=== PATIENT | male | born 1990 | race Caucasian/White ===

== ENCOUNTER 2025-07-03 08:08 | Observation (INO) ==
--- NOTE | 2025-07-03 08:52 | Emergency Department Note ---
Impression & Plan Alcohol withdrawal, Tremor, Anxiety, Panic attacks ED Provider Note CHIEF COMPLAINT: Hypertension, panic attacks HISTORY OF PRESENTING ILLNESS: Patient is a 35-year-old male who presents to the emergency department today for complaints of hypertension and panic attacks. He reports being at work and becoming jittery, he Suprane and fell like he was going to pass out. He reports this is typically how his panic attacks present. He reports feeling in "impending doom" at the time of the panic attack. His symptoms have currently resolved. He does report drinking 5 rum and Cokes a night for the past 11 years but stopped drinking on Monday at 5 PM and has not had a drink since. He does report chest discomfort but believes it is related to his panic attack. He denies any headaches, visual changes, dizziness, lightheadedness, syncope.. Patient denies sob, breathing difficulties, abdominal pain, headache, fevers/chills, blood in stool or urine, any recent illness, or any recent travel. REVIEW OF SYSTEMS: See HPI for pertinent positives and pertinent negatives. ALLERGIES: See below MEDICATIONS: See below PAST MEDICAL HISTORY: See below PHYSICAL EXAM: VITALS: Vitals are noted on the nurse's note and reviewed by myself. GENERAL: Tremor to bilateral hands noted. Non toxic, in no acute distress, non- diaphoretic. SKIN: Warm, pink, dry. Capillary refill <2 sec. EYES: PERRLA. EOMI. Conjunctivae without injection, sclerae without icterus. NOSE: Patent without discharge. MOUTH: Mucous membranes moist. Uvula midline. Airway patent. NECK: Supple without nuchal rigidity. HEART: Regular rate and rhythm without murmurs gallops or rubs. LUNGS: Clear to auscultation bilaterally without wheezes, rales or rhonchi. No retractions or accessory muscle use. ABDOMEN: Positive bowel sounds x 4. Normal tympanic percussion. Soft, nontender to palpation. No masses or hepatosplenomegaly. Gutiérrez sign negative. No CVA tenderness. No guarding, rigidity, or rebound tenderness. No focal RLQ or LLQ tenderness. MUSCULOSKELETAL: No gross musculoskeletal defects. NEURO: Patient was alert and oriented. No focal neurological deficits. NIH 0. DIFFERENTIAL DIAGNOSIS: Sepsis, stroke, intracranial hemorrhage, medication abuse, anxiety, PTSD, bipolar disorder, electrolyte imbalances, among others. ED COURSE AND MEDICAL DECISION MAKING: HISTORY FROM INDEPENDENT HISTORIAN: History was provided by the patient. MONITOR: Continuous desk monitor: Order was placed for continuous desk monitor. Patient was placed on the desk monitor and continuous pulse ox. Patient was noted to be in normal sinus rhythm at an initial rate of 82 bpm per my interpretation. EKG: EKG was interpreted by myself as normal sinus rhythm at a ventricular rate of 84 bpm. INTERPRETATION OF LABS: I interpreted the labs with full lab results as below in the lab section of this note. Laboratory results pertinent to the emergent complaint are discussed in the MDM section below. The patient was advised to follow up with their PCP and/or specialist(s) for further outpatient monitoring and management of any abnormal results. INTERPRETATION OF IMAGING: Imaging studies were interpreted by myself and read by radiology as per the imaging section of this note. The patient was advised to follow up with their PCP and/or specialist(s) for further outpatient management of any non-emergent abnormal findings. CHRONIC MEDICAL/SOCIAL CONDITIONS AFFECTING CARE: No social concerns were identified as barriers to patients care. EXTERNAL RECORDS REVIEWED: Patient's emergency room visit from 05/10/2020 related to withdrawal complaints. ESCALATION OF CARE CONSIDERED: I considered admission on this patient due to alcohol withdrawal symptoms. I did discuss the patient's plan of quitting the use of alcohol and he is preferring to stop drinking and inpatient management for withdrawal symptoms. CONSULTATIONS: I had a meaningful discussion about this patient with Dr. Goodson who agrees with my assessment and the treatment plan. SUMMARY: I examined the patient for complaints of hypertension, panic attacks. A physical exam and history were performed. Nursing notes, EMR, and medication list were personally reviewed. CBC shows no leukocytosis, anemia, thrombocytopenia. CMP showed no emergent findings. Lipase was 7. Troponin was less than 2.3. Urinalysis was negative for leukocytes, nitrates. Urinalysis showed no leukocytes, nitrates. UDS was negative. Medical alcohol was less than 10. Chest x-ray showed no acute findings. Patient was given Ativan 1 mg for an alcohol withdrawal score of 5 with significant improvement in his symptoms of anxiety, tremors. He was given thiamine and folic acid p.o. I did discuss the patient's plan of discontinuing alcohol use versus continuing and he is looking at stopping. We discussed the risks and at this time he is in agreements for admission to the hospital for alcohol withdrawal. I did talk to Dr. Rodriguez for admission and the patient was accepted. DIAGNOSIS: Alcohol withdrawal, anxiety, panic attacks TREATMENT PLAN/DISCHARGE INSTRUCTIONS: Admit to hospitalist services. The chart was completed utilizing [employer] Speech voice recognition software.Grammatical errors, random word insertions, pronoun errors, and incomplete sentences are an occasional consequence of this system due to software limitations, ambient noise, and hardware issues.Any formal questions or concerns about the content, text, or information contained within the body of this dictation should be directly addressed to the physician for clarification. Past Med/Surg History Problem List (Updated 07/03/25 @ 11:12 by Javier Rodriguez MD) Alcohol withdrawal syndrome without complication GUANAKO (generalized anxiety disorder) Panic attacks (Acute) Anxiety (Acute) Tremor (Acute) Alcohol withdrawal (Acute) Social History Smoking Status: Former smoker Tobacco Type: Cigarettes Feels Safe at Home: Yes Allergies Allergies Allergy/AdvReac Type Severity Reaction Status Date / Time No Known Allergies Allergy Unverified 05/10/20 19:09 Home Meds Home Medications Medication Instructions Recorded Confirmed omeprazole 20 mg capsule,delayed 0 mg PO DAILY 07/03/25 07/03/25 release Results & Data (ED) Vital Signs Vital Signs - 24 hr 07/03/25 08:09 07/03/25 08:17 07/03/25 08:54 Temperature 36.6 C Temperature Source Oral Oral Pulse Rate 82 77 Pulse Rate [Apical] 82 Pulse Rate from SpO2 Sensor Pulse Rhythm Pulse Rhythm [Apical] Regular Pulse Strength [Apical] Normal Respiratory Rate 22 20 Respiratory Effort / Characteristics Non-Labored Spontaneous Non-Labored Spontaneous Respiratory Depth Normal Normal Respiratory Pattern Regular Blood Pressure 155/96 H Blood Pressure [Right Arm] 143/103 H Blood Pressure Mean 115 Blood Pressure Mean [Right Arm] 116 Pulse Oximetry 98 99 Oxygen Delivery Method Room Air Room Air Sepsis Recent Fever Within 48 Hours No Sepsis New/Unexplained Change in Mental Status N/A Sepsis Action Taken by Nursing No Action Required 07/03/25 08:56 07/03/25 09:00 07/03/25 09:09 Temperature Temperature Source Pulse Rate 86 79 78 Pulse Rate [Apical] Pulse Rate from SpO2 Sensor 78 78 Pulse Rhythm Pulse Rhythm [Apical] Pulse Strength [Apical] Respiratory Rate 21 16 22 Respiratory Effort / Characteristics Respiratory Depth Respiratory Pattern Blood Pressure 139/109 H Blood Pressure [Right Arm] Blood Pressure Mean 114 Blood Pressure Mean [Right Arm] Pulse Oximetry 98 96 97 Oxygen Delivery Method Room Air Room Air Sepsis Recent Fever Within 48 Hours Sepsis New/Unexplained Change in Mental Status Sepsis Action Taken by Nursing 07/03/25 09:10 07/03/25 09:10 07/03/25 09:10 Temperature Temperature Source Pulse Rate Pulse Rate [Apical] Pulse Rate from SpO2 Sensor Pulse Rhythm Pulse Rhythm [Apical] Pulse Strength [Apical] Respiratory Rate Respiratory Effort / Characteristics Respiratory Depth Respiratory Pattern Blood Pressure 150/94 H 150/94 H 150/94 H Blood Pressure [Right Arm] Blood Pressure Mean 101 101 101 Blood Pressure Mean [Right Arm] Pulse Oximetry Oxygen Delivery Method Sepsis Recent Fever Within 48 Hours Sepsis New/Unexplained Change in Mental Status Sepsis Action Taken by Nursing 07/03/25 09:10 07/03/25 09:10 07/03/25 09:11 Temperature Temperature Source Pulse Rate 74 Pulse Rate [Apical] Pulse Rate from SpO2 Sensor Pulse Rhythm Regular Pulse Rhythm [Apical] Pulse Strength [Apical] Respiratory Rate 22 Respiratory Effort / Characteristics Respiratory Depth Respiratory Pattern Blood Pressure 150/94 H 150/94 H Blood Pressure [Right Arm] Blood Pressure Mean 101 101 Blood Pressure Mean [Right Arm] Pulse Oximetry 97 Oxygen Delivery Method Room Air Sepsis Recent Fever Within 48 Hours Sepsis New/Unexplained Change in Mental Status Sepsis Action Taken by Nursing 07/03/25 09:11 07/03/25 09:12 07/03/25 09:21 Temperature Temperature Source Pulse Rate 73 72 Pulse Rate [Apical] 74 Pulse Rate from SpO2 Sensor 74 75 Pulse Rhythm Pulse Rhythm [Apical] Pulse Strength [Apical] Respiratory Rate 20 18 17 Respiratory Effort / Characteristics Non-Labored Respiratory Depth Normal Respiratory Pattern Blood Pressure Blood Pressure [Right Arm] 150/94 H Blood Pressure Mean Blood Pressure Mean [Right Arm] 112 Pulse Oximetry 96 97 98 Oxygen Delivery Method Room Air Sepsis Recent Fever Within 48 Hours Sepsis New/Unexplained Change in Mental Status Sepsis Action Taken by Nursing 07/03/25 09:30 07/03/25 09:30 07/03/25 09:30 Temperature Temperature Source Pulse Rate Pulse Rate [Apical] Pulse Rate from SpO2 Sensor Pulse Rhythm Pulse Rhythm [Apical] Pulse Strength [Apical] Respiratory Rate Respiratory Effort / Characteristics Respiratory Depth Respiratory Pattern Blood Pressure 144/99 H 144/99 H 144/99 H Blood Pressure [Right Arm] Blood Pressure Mean 108 108 108 Blood Pressure Mean [Right Arm] Pulse Oximetry Oxygen Delivery Method Sepsis Recent Fever Within 48 Hours Sepsis New/Unexplained Change in Mental Status Sepsis Action Taken by Nursing 07/03/25 09:30 07/03/25 09:30 07/03/25 09:30 Temperature Temperature Source Pulse Rate 75 Pulse Rate [Apical] Pulse Rate from SpO2 Sensor 74 Pulse Rhythm Pulse Rhythm [Apical] Pulse Strength [Apical] Respiratory Rate 24 Respiratory Effort / Characteristics Respiratory Depth Respiratory Pattern Blood Pressure 144/99 H 144/99 H Blood Pressure [Right Arm] Blood Pressure Mean 108 108 Blood Pressure Mean [Right Arm] Pulse Oximetry 99 Oxygen Delivery Method Sepsis Recent Fever Within 48 Hours Sepsis New/Unexplained Change in Mental Status Sepsis Action Taken by Nursing 07/03/25 09:42 07/03/25 09:51 07/03/25 10:00 Temperature Temperature Source Pulse Rate 82 68 Pulse Rate [Apical] Pulse Rate from SpO2 Sensor 79 69 Pulse Rhythm Pulse Rhythm [Apical] Pulse Strength [Apical] Respiratory Rate 17 16 Respiratory Effort / Characteristics Respiratory Depth Respiratory Pattern Blood Pressure 154/115 H Blood Pressure [Right Arm] Blood Pressure Mean 121 Blood Pressure Mean [Right Arm] Pulse Oximetry 99 99 Oxygen Delivery Method Sepsis Recent Fever Within 48 Hours Sepsis New/Unexplained Change in Mental Status Sepsis Action Taken by Nursing 07/03/25 10:00 07/03/25 10:00 07/03/25 10:00 Temperature Temperature Source Pulse Rate Pulse Rate [Apical] Pulse Rate from SpO2 Sensor Pulse Rhythm Pulse Rhythm [Apical] Pulse Strength [Apical] Respiratory Rate Respiratory Effort / Characteristics Respiratory Depth Respiratory Pattern Blood Pressure 154/115 H 154/115 H 154/115 H Blood Pressure [Right Arm] Blood Pressure Mean 121 121 121 Blood Pressure Mean [Right Arm] Pulse Oximetry Oxygen Delivery Method Sepsis Recent Fever Within 48 Hours Sepsis New/Unexplained Change in Mental Status Sepsis Action Taken by Nursing 07/03/25 10:00 07/03/25 10:00 07/03/25 10:12 Temperature Temperature Source Pulse Rate 65 81 Pulse Rate [Apical] Pulse Rate from SpO2 Sensor 69 81 Pulse Rhythm Pulse Rhythm [Apical] Pulse Strength [Apical] Respiratory Rate 16 19 Respiratory Effort / Characteristics Respiratory Depth Respiratory Pattern Blood Pressure 154/115 H Blood Pressure [Right Arm] Blood Pressure Mean 121 Blood Pressure Mean [Right Arm] Pulse Oximetry 99 94 Oxygen Delivery Method Sepsis Recent Fever Within 48 Hours Sepsis New/Unexplained Change in Mental Status Sepsis Action Taken by Nursing 07/03/25 10:15 07/03/25 10:21 07/03/25 10:30 Temperature Temperature Source Pulse Rate 68 72 Pulse Rate [Apical] 71 Pulse Rate from SpO2 Sensor 69 70 Pulse Rhythm Pulse Rhythm [Apical] Pulse Strength [Apical] Respiratory Rate 18 19 19 Respiratory Effort / Characteristics Non-Labored Respiratory Depth Normal Respiratory Pattern Blood Pressure Blood Pressure [Right Arm] 154/115 H Blood Pressure Mean Blood Pressure Mean [Right Arm] 128 Pulse Oximetry 100 100 100 Oxygen Delivery Method Room Air Sepsis Recent Fever Within 48 Hours Sepsis New/Unexplained Change in Mental Status Sepsis Action Taken by Nursing 07/03/25 10:30 07/03/25 10:30 07/03/25 10:30 Temperature Temperature Source Pulse Rate Pulse Rate [Apical] Pulse Rate from SpO2 Sensor Pulse Rhythm Pulse Rhythm [Apical] Pulse Strength [Apical] Respiratory Rate Respiratory Effort / Characteristics Respiratory Depth Respiratory Pattern Blood Pressure 146/98 H 146/98 H 146/98 H Blood Pressure [Right Arm] Blood Pressure Mean 109 109 109 Blood Pressure Mean [Right Arm] Pulse Oximetry Oxygen Delivery Method Sepsis Recent Fever Within 48 Hours Sepsis New/Unexplained Change in Mental Status Sepsis Action Taken by Nursing 07/03/25 10:30 07/03/25 10:30 07/03/25 10:30 Temperature Temperature Source Pulse Rate Pulse Rate [Apical] Pulse Rate from SpO2 Sensor Pulse Rhythm Pulse Rhythm [Apical] Pulse Strength [Apical] Respiratory Rate Respiratory Effort / Characteristics Respiratory Depth Respiratory Pattern Blood Pressure 146/98 H 146/98 H 146/98 H Blood Pressure [Right Arm] Blood Pressure Mean 109 109 109 Blood Pressure Mean [Right Arm] Pulse Oximetry Oxygen Delivery Method Sepsis Recent Fever Within 48 Hours Sepsis New/Unexplained Change in Mental Status Sepsis Action Taken by Nursing 07/03/25 10:30 07/03/25 10:30 07/03/25 10:30 Temperature Temperature Source Pulse Rate Pulse Rate [Apical] Pulse Rate from SpO2 Sensor Pulse Rhythm Pulse Rhythm [Apical] Pulse Strength [Apical] Respiratory Rate Respiratory Effort / Characteristics Respiratory Depth Respiratory Pattern Blood Pressure 146/98 H 146/98 H 146/98 H Blood Pressure [Right Arm] Blood Pressure Mean 109 109 109 Blood Pressure Mean [Right Arm] Pulse Oximetry Oxygen Delivery Method Sepsis Recent Fever Within 48 Hours Sepsis New/Unexplained Change in Mental Status Sepsis Action Taken by Nursing Laboratory Data 07/03/25 08:58 07/03/25 08:58 Lab Results 07/03/25 07/03/25 07/03/25 Range/Units 08:58 09:02 10:30 WBC 5.38 (4.8-10.8) K/ul RBC 5.22 (4.70-6.10) M/uL Hgb 15.7 (14.0-18.0) g/dl Hct 44.9 (42.0-52.0) % MCV 86.0 (80.0-100.0) fL MCH 30.1 (25.0-34.0) pg MCHC 35.0 (32.0-36.0) g/dL RDW Std Deviation 37.8 (36.4-46.3) fL RDW Coeff of Nathan 12.0 (11.5-14.5) % Plt Count 276 (130-400) K/uL MPV 9.3 L (9.4-12.4) fL Immature Gran % (Auto) 0.4 % Neut % (Auto) 68.4 % Lymph % (Auto) 20.4 % Roberts % (Auto) 8.2 % Eos % (Auto) 1.5 % Baso % (Auto) 1.1 % Neut # (Auto) 3.68 (1.40-6.50) K/uL Lymph # (Auto) 1.10 L (1.20-3.40) K/uL Roberts # (Auto) 0.44 (0.11-0.59) K/uL Eos # (Auto) 0.08 (0.00-0.50) K/uL Baso # (Auto) 0.06 (0.00-0.20) K/uL Immature Gran # (Auto) 0.02 (0.01-0.20) K/uL Sodium 136 (136-145) mmol/L Potassium 4.2 (3.5-5.1) mmol/L Chloride 103 (98-107) mmol/L Carbon Dioxide 27 (21-32) mmol/L Anion Gap 6 (3-11) BUN 15 (6-23) mg/dl Creatinine 0.94 (0.6-1.4) mg/dl Est Cr Clr Drug Dosing 100.6 ml/min eGFR 107.08 BUN/Creatinine Ratio 16.0 (10-20) Glucose 116 H (70-99(Fasting)) mg/dl Calcium 9.3 (8.6-10.3) mg/dl Magnesium 1.8 (1.7-2.4) mg/dl Total Bilirubin 0.9 (0.2-1.0) mg/dl AST 19 (13-39) U/L ALT 26 (7-52) U/L Alkaline Phosphatase 45 (34-104) U/L Troponin I High Sens < 2.3 (0-20) pg/ml Total Protein 7.2 (6.0-8.3) gm/dl Albumin 4.7 (3.4-5.0) gm/dl Globulin 2.5 (2.5-4.0) gm/dl Albumin/Globulin Ratio 1.9 (0.9-2) Lipase 7 L (11-82) U/L Vitamin B12 343 (180-914) pg/ml TSH 1.336 (0.300-4.500) uIu/ml Ethyl Alcohol mg/dL < 10.0 (<10.0) mg/dl Administered Medications Folic Acid (Folic Acid 1 Mg Tab) 1 mg PO QAM DELON Stop: 08/02/25 08:59 Last Admin: 07/03/25 09:45 Dose: 1 mg Documented By: KIRK Lactated Ringer's (Lr) 1,000 mls @ 100 mls/hr IV .Q10H DELON Stop: 07/04/25 07:00 Last Admin: 07/03/25 11:08 Dose: 100 mls/hr Documented By: bharati Discontinued Medications Escitalopram Oxalate (Escitalopram Oxalate 10 Mg Tab) 10 mg PO ONE ONE Stop: 07/03/25 11:46 Last Admin: 07/03/25 11:49 Dose: 10 mg Documented By: bharati Sodium Chloride (Nss) 1,000 mls @ 999 mls/hr IV .Q1H1M STA Stop: 07/03/25 09:36 Last Infusion: 07/03/25 10:16 Dose: Infused Documented By: Admin: 07/03/25 09:10 Dose: 999 mls/hr Documented By: bharati Lorazepam (Lorazepam 1 Mg/1 Ml Syr Ed Inj Use) 1 mg IV ONE STA Stop: 07/03/25 08:42 Last Admin: 07/03/25 09:10 Dose: 1 mg Documented By: bharati Nicotine (Nicotine 14 Mg/24 Hr Patch) 1 patch TD ONE ONE Stop: 07/03/25 11:46 Last Admin: 07/03/25 11:50 Dose: Not Given Documented By: bharati Thiamine HCl (Thiamine Hcl 100 Mg Tab) 100 mg PO NOW STA Stop: 07/03/25 08:42 Last Admin: 07/03/25 10:06 Dose: 100 mg Documented By: MMG Imaging Data Radiologist's Impression: Chest X-Ray 07/03/25 08:36 XR chest 1V portable CLINICAL HISTORY: Chest pain, nonspecific COMPARISON STUDY: 05/10/2020 FINDINGS: Heart size and pulmonary vasculature are normal. No consolidation or pleural effusion. No pneumothorax. IMPRESSION: No acute findings. ACT 112: Negative or not required by law. Electronically signed by: Archie Salcido M.D. 07/03/2025 9:11 AM Discharge Plan Visit Data Chief Complaint: Hypertension Stated Complaint: HIGH BP, HANDS WENT NUMB, CHEST PRESSURE ED Provider: Jose C Goodson ED Midlevel Provider: Macey Soriano Discharge Problem: Alcohol withdrawal, Tremor, Anxiety, Panic attacks Patient Disposition: Admitted As Inpatient Condition: Good Discharge Instructions Interventions: ED Discharge Assessment Last Done: 07/03/25 12:22 Discharge Problem: Alcohol withdrawal Qualifiers: Complication of substance-induced condition: uncomplicated Qualified Code(s): F 10.930 - Alcohol use, unspecified with withdrawal, uncomplicated
[2025-07-03] MEDS: LORazepam 1 MG/1 ML SYR ED Inj Use IV STA (09:10)
[2025-07-03] MEDS: SODIUM CHLORIDE 0.9% 1,000 ML IV STA (09:10)
--- NOTE | 2025-07-03 09:13 | XRay Report ---
XR chest 1V portable CLINICAL HISTORY: Chest pain, nonspecific COMPARISON STUDY: 05/10/2020 FINDINGS: Heart size and pulmonary vasculature are normal. No consolidation or pleural effusion. No p neumothorax. IMPRESSION: No acute findings. ACT 112: Negative or not required by law. Electronically signed by: Archie Salcido M.D. 07/03/2025 9:11 AM
[2025-07-03 09:25] LABS: Hematocrit (blood only) 44.9 % (42.0-52.0); Hemoglobin 15.7 g/dl (14.0-18.0); Immature Granulocytes # (auto) 0.02 K/uL (0.01-0.20); Immature Granulocytes % (auto) 0.4 %; Mean Corpuscular Hemoglobin 30.1 pg (25.0-34.0); Mean Corpuscular Volume 86.0 fL (80.0-100.0); Platelet Count 276 K/uL (130-400); RDW Standard Deviation 37.8 fL (36.4-46.3); Red Blood Count 5.22 M/uL (4.70-6.10); White Blood Count 5.38 K/ul (4.8-10.8)
[2025-07-03] MEDS: FOLIC ACID 1 MG TAB PO SCH (09:45)
[2025-07-03] MEDS: THIAMINE HCL 100 MG TAB PO STA (09:46)
[2025-07-03 09:47] LABS: Alanine Aminotransferase 26 U/L (7-52); Albumin Globulin Ratio 1.9 (0.9-2); Albumin Level 4.7 gm/dl (3.4-5.0); Alkaline Phosphatase 45 U/L (34-104); Anion Gap 6 (3-11); Bilirubin,Total 0.9 mg/dl (0.2-1.0); Blood Urea Nitrogen 15 mg/dl (6-23); Calcium 9.3 mg/dl (8.6-10.3); Carbon Dioxide 27 mmol/L (21-32); Chloride 103 mmol/L (98-107); Creatinine Clr Calc Pharmacy 100.6 ml/min; Globulin 2.5 gm/dl (2.5-4.0); Glucose 116 mg/dl (70-99(Fasting)); Lipase 7 U/L (11-82); Magnesium 1.8 mg/dl (1.7-2.4); Potassium 4.2 mmol/L (3.5-5.1); Sodium 136 mmol/L (136-145); Total Protein 7.2 gm/dl (6.0-8.3)
[2025-07-03 10:27] LABS: Appearance Urine Clear (Clear); Glucose Urine UA Negative (Negative)
[2025-07-03] MEDS ORDERED: LORazepam 1 MG TAB PO PRN (10:43)
[2025-07-03] MEDS: LACTATED RINGER'S 1,000 ML IV SCH (11:08)
--- NOTE | 2025-07-03 11:08 | History & Physical Report ---
Date of Service July 03, 2025 Assessment & Plan (1) Panic attacks: (2) Alcohol withdrawal syndrome without complication: (3) GUANAKO (generalized anxiety disorder): Plan 35yo male with pmhx of alcohol use disorder, tobacco use who presents for hypertension and panic attacks 2/2 severe anxiety and alcohol withdrawal. #Alcohol Withdrawal #Alcohol Use Disorder #Severe GUANAKO -patient scored 16 on GUANAKO-7 diagnosing patient with severe anxiety -stopped drinking 2 days ago, symptoms started next morning -denies concomitant drug use -other considerations would be arrythmia or far less likely endocrine disorder, but RRR on exam and no other localizing symptoms Plan: -admit to med/surg for alcohol withdrawal -alcohol withdrawal score tracking and ativan prn (mild withdrawal, no prior DTs) -start high dose thiamine, folic acid, check B12, TSH for metabolic workup -discuss with case management alcohol treatment options -psych liaison consult for counseling recommendations, appreciate recs -start lexapro 10mg, discussed risks and benefits with patient, shared decision making, patient agreeable -start maintenance fluids for 24 hours #Tobacco Use -nicotine patch ordered I spent a total of 80 minutes in direct patient care, including jyyd-[id number] time with the patient and/or family, reviewing medical records, ordering and reviewing diagnostic tests, and coordinating care with other healthcare providers. This time includes: history taking, physical examination, medical decision making, counseling, ECG interpretation, imaging interpretation, lab interpretation, orders, and education, excluding time spent in the performance of separately billed services. History of Present Illness Chief Complaint: -hypertension, panic attacks Primary Care Provider: Anny Tamayo PA-C 35yo male with pmhx of alcohol use disorder, tobacco use who presents for hypertension and panic attacks. He has no prior admissions at [facility]. In the ED, given vitamins and fluids, admitted to medicine. Patient seen and examined at bedside. Patient doing ok today. States that he has been "hypertensive" at home the past 2 days. States he quit drinking alcohol 2 days ago for a "tolerance check" and the next morning began having panic attacks . Has had several attacks with shaking of hands, lightheadedness, feeling like he is going to pass out. States he feels he has severe anxiety and this is partially why he drinks. Has gotten "the shot" for alcohol cravings but stopped getting them. Does not want therapy but is open to discussing resources. Motivated to quit drinking. Tobacco use, no drug use, full code. Allergies Allergy/AdvReac Type Severity Reaction Status Date / Time No Known Allergies Allergy Unverified 05/10/20 19:09 Home Medications Medication Instructions Recorded Confirmed Type omeprazole 20 mg capsule,delayed 0 mg PO DAILY 07/03/25 07/03/25 History release Past Med/Surg History Problem List (Updated 07/03/25 @ 11:12 by Javier Rodriguez MD) Alcohol withdrawal syndrome without complication GUANAKO (generalized anxiety disorder) Panic attacks (Acute) Anxiety (Acute) Tremor (Acute) Alcohol withdrawal (Acute) Social History Smoking Status: Former smoker Tobacco Type: Cigarettes Feels Safe at Home: Yes Review of Systems Review of Systems: -negative unless listed above Physical Exam Physical Exam: Gen: A&O 3 NAD HEENT: NCAT, EOMI, not icteric. External ears normal. No rhinorrhea. Moist muco us membranes. Neck: Supple, full range of motion, no observable masses, No meningeal sign. Lungs: No Respiratory distress. CV: RRR, no edema. Abdomen: Soft, nondistended, No rebound tenderness. MSK: No joint swelling, no redness. Skin: No rashes, petechiae, lesions. Normal color per patient. Neuro: Normal Gait, Grossly intact. Tremors noted bilaterally, mild diaphoretic Psych: Appropriate for situation. Results & Data Results & Data Vital Signs (Past 12 Hours) Vital Signs Temp Pulse Pulse Resp BP BP Pulse Ox 07/03/25 10:51 77 18 99 07/03/25 10:42 74 15 99 07/03/25 10:30 146/98 H 07/03/25 10:30 146/98 H 07/03/25 10:30 146/98 H 07/03/25 10:30 146/98 H 07/03/25 10:30 146/98 H 07/03/25 10:30 146/98 H 07/03/25 10:30 146/98 H 07/03/25 10:30 146/98 H 07/03/25 10:30 146/98 H 07/03/25 10:30 72 19 100 07/03/25 10:21 68 19 100 07/03/25 10:15 71 18 154/115 H 100 07/03/25 10:12 81 19 94 07/03/25 10:00 65 16 99 07/03/25 10:00 154/115 H 07/03/25 10:00 154/115 H 07/03/25 10:00 154/115 H 07/03/25 10:00 154/115 H 07/03/25 10:00 154/115 H 07/03/25 09:51 68 16 99 07/03/25 09:42 82 17 99 07/03/25 09:30 75 24 99 07/03/25 09:30 144/99 H 07/03/25 09:30 144/99 H 07/03/25 09:30 144/99 H 07/03/25 09:30 144/99 H 07/03/25 09:30 144/99 H 07/03/25 09:21 72 17 98 07/03/25 09:12 73 18 97 07/03/25 09:11 74 20 150/94 H 96 07/03/25 09:11 74 22 97 07/03/25 09:10 150/94 H 07/03/25 09:10 150/94 H 07/03/25 09:10 150/94 H 07/03/25 09:10 150/94 H 07/03/25 09:10 150/94 H 07/03/25 09:09 78 22 97 07/03/25 09:00 79 16 96 07/03/25 08:56 86 21 139/109 H 98 07/03/25 08:54 77 07/03/25 08:17 36.6 C 82 20 155/96 H 99 07/03/25 08:09 82 22 143/103 H 98 O2 Del Method 07/03/25 10:51 07/03/25 10:42 07/03/25 10:30 07/03/25 10:30 07/03/25 10:30 07/03/25 10:30 07/03/25 10:30 07/03/25 10:30 07/03/25 10:30 07/03/25 10:30 07/03/25 10:30 07/03/25 10:30 07/03/25 10:21 07/03/25 10:15 Room Air 07/03/25 10:12 07/03/25 10:00 07/03/25 10:00 07/03/25 10:00 07/03/25 10:00 07/03/25 10:00 07/03/25 10:00 07/03/25 09:51 07/03/25 09:42 07/03/25 09:30 07/03/25 09:30 07/03/25 09:30 07/03/25 09:30 07/03/25 09:30 07/03/25 09:30 07/03/25 09:21 07/03/25 09:12 07/03/25 09:11 Room Air 07/03/25 09:11 Room Air 07/03/25 09:10 07/03/25 09:10 07/03/25 09:10 07/03/25 09:10 07/03/25 09:10 07/03/25 09:09 07/03/25 09:00 Room Air 07/03/25 08:56 Room Air 07/03/25 08:54 07/03/25 08:17 Room Air 07/03/25 08:09 Room Air Laboratory Results -personally reviewed, no leukocytosis, lipase 7, UA with ketones Medications Administered Folic Acid (Folic Acid 1 Mg Tab) 1 mg PO QAM DELON Stop: 08/02/25 08:59 Last Admin: 07/03/25 09:45 Dose: 1 mg Documented By: KIRK Lactated Ringer's (Lr) 1,000 mls @ 100 mls/hr IV .Q10H DELON Stop: 07/04/25 07:00 Last Admin: 07/03/25 11:08 Dose: 100 mls/hr Documented By: sak Code Status & VTE Plan Code Status -full code VTE Prophylaxis Plan VTE Prophylaxis will be ordered: Yes
[2025-07-03 11:14] LABS: Amphetamines+Metham, Urine Neg (Neg); MDMA (Ecstacy), Urine Neg (Neg); Marijuana, Urine Neg (Neg)
[2025-07-03] MEDS: ESCITALOPRAM OXALATE 10 MG TAB PO ONE (11:49)
[2025-07-03] MEDS: NICOTINE 14 MG/24 HR PATCH TD ONE (11:50)
--- NOTE | 2025-07-03 12:45 | Electrocardiogram Report ---
Test Reason : Blood Pressure : */* mmHG Vent. Rate : 84 BPM Atrial Rate : 84 BPM P-R Int : 148 ms QRS Dur : 78 ms QT Int : 346 ms P-R-T Axes : 37 40 24 degrees QTcB Int : 408 ms Normal sinus rhythm Normal ECG When compared with ECG of 10-May-2020 15:33, No significant change was found Confirmed by Jae Saldana ([id number]) on 07/03/2025 12:45:07 PM Referred By: REFERRED SELF Confirmed By: Jae Saldana
[2025-07-03] MEDS ORDERED: ONDANSETRON INJ 2 MG/ML 2 ML VIAL IV PRN (12:48)
[2025-07-03] MEDS ORDERED: ACETAMINOPHEN 325 MG TAB PO PRN (12:48)
[2025-07-03] MEDS ORDERED: POLYETHYLENE (MIRALAX) 17 GM PACK PO PRN (12:48)
[2025-07-03] MEDS: ENOXAPARIN INJ 40 MG/0.4 ML SYR SQ SCH (13:22)
[2025-07-04 08:06] LABS: Anion Gap 6.0 (3-11); Blood Urea Nitrogen 11.0 mg/dl (6-23); Calcium 9.3 mg/dl (8.6-10.3); Carbon Dioxide 27.0 mmol/L (21-32); Chloride 105.0 mmol/L (98-107); Creatinine Clr Calc Pharmacy 113.9 ml/min; Glucose 96.0 mg/dl (70-99(Fasting)); Potassium 4.4 mmol/L (3.5-5.1); Sodium 138.0 mmol/L (136-145)
[2025-07-04] MEDS: ESCITALOPRAM OXALATE 10 MG TAB PO SCH (08:13)
[2025-07-04] MEDS: THIAMINE HCL 100 MG TAB PO SCH (08:13)
[2025-07-04] MEDS: NICOTINE 14 MG/24 HR PATCH TD SCH (08:15)
[2025-07-04] MEDS: REMOVE NICODERM PATCH SCH (08:17)
[2025-07-04] MEDS ORDERED: clonazePAM 0.5 MG TAB PO PRN (08:17)
[2025-07-04] MEDS: clonazePAM 0.5 MG TAB PO STA (08:24)
[2025-07-04] MEDS: FOLIC ACID 1 MG TAB PO SCH (09:15)
[2025-07-04 09:32] LABS: Magnesium 2.1 mg/dl (1.7-2.4)
--- NOTE | 2025-07-04 10:44 | Hospitalist Progress Note ---
Date of Service July 04, 2025 Assessment & Plan (1) Panic attacks: (2) Alcohol withdrawal syndrome without complication: (3) GUANAKO (generalized anxiety disorder): Plan 35yo male with pmhx of alcohol use disorder, tobacco use who presents for hypertension and panic attacks 2/2 severe anxiety and alcohol withdrawal. #Severe GUANAKO #Alcohol Use Disorder Patient presents with a history of multiple panic attacks; more frequent in the last 3 days;Reports alcohol use to mitigate the symptoms of panic attack -patient scored 16 on GUANAKO-7 diagnosing patient with severe anxiety -last drink 2 days prior to admission Plan: Started on Lexapro 10mg; continue. Add Klonopin 0.5 mg as needed twice daily. Will consult psychiatry for further recommendation. Continue on thiamine, folic acid. #Tobacco Use -nicotine patch ordered DVT prophylaxis Lovenox Full code Please note the above document was generated using voice recognition software. It may contain grammatical, syntax or spelling errors. Any formal questions or c oncerns about the content, text or information contained within the body of this dictation should be directly addressed to the provider for clarification Admission and Anticipated Discharge Date Admission Date: July 03, 2025 Subjective Patient seen and examined at bedside. He reported management of panic attack with fever, chest discomfort and shortness of breath; was given Klonopin with improvement in symptoms. Review of Systems Review of Systems: All systems reviewed & are unremarkable except as noted in Subjective Physical Exam Physical Exam: Constitutional: WD/WN, vitals as above, NAD, sitting up in bed, pleasant, conversing easily Respiratory: normal respiratory effort, lungs clear to auscultation, no wheeze, rales, rhonchi. Normal insp/exp effort, no accessory muscle use Cardiovascular: RRR, no murmur, no edema Vessels: no JVD or carotid bruit Chest: normal inspection of chest Abdomen: normal bowel sounds, soft, nontender, no hepatosplenomegaly Musculoskeletal: no cyanosis or clubbing, extremities motor strength 5/5 Skin: no rashes, warm and dry normal turgor Neurologic: PERRL, EOMI, accommodation nl, no face palsy, no dysarthria CN's II- XI intact bilaterally and moves all extremities Psychiatric: A+Ox3, Appears anxious. No tremors noted Results & Data Results & Data Vital Signs (Past 12 Hours) Vital Signs Temp Pulse Resp BP Pulse Ox O2 Del Method 07/04/25 08:06 36.6 C 76 16 149/93 H 98 Room Air 07/04/25 03:37 36.4 C L 62 16 127/81 97 Room Air 07/03/25 23:25 36.7 C 64 16 132/84 96 Room Air
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
[2025-07-04] MEDS ORDERED: MELATONIN 3 MG TAB PO PRN (19:38)
[2025-07-05 08:13] VITALS: BP 143/92; PULSE 70; RESP 18; TEMP 98.2; O2SAT 99
--- NOTE | 2025-07-05 10:00 | Discharge Summary ---
Date of Service July 05, 2025 Admission HPI Per Admitting Provider 35yo male with pmhx of alcohol use disorder, tobacco use who presents for hypertension and panic attacks. He has no prior admissions at [facility]. In the ED, given vitamins and fluids, admitted to medicine. Patient seen and examined at bedside. Patient doing ok today. States that he has been "hypertensive" at home the past 2 days. States he quit drinking alcohol 2 days ago for a "tolerance check" and the next morning began having panic attacks. Has had several attacks with shaking of hands, lightheadedness, feeling like he is going to pass out. States he feels he has severe anxiety and this is partially why he drinks. Has gotten "the shot" for alcohol cravings but stopped getting them. Does not want therapy but is open to discussing resources. Motivated to quit drinking. Tobacco use, no drug use, full code. Admission Exam Per Admitting Provider Constitutional: WD/WN, vitals as above, NAD, sitting up in bed, pleasant, co nversing easily Respiratory: normal respiratory effort, lungs clear to auscultation, no wheeze, rales, rhonchi. Normal insp/exp effort, no accessory muscle use Cardiovascular: RRR, no murmur, no edema Vessels: no JVD or carotid bruit Chest: normal inspection of chest Abdomen: normal bowel sounds, soft, nontender, no hepatosplenomegaly Musculoskeletal: no cyanosis or clubbing, extremities motor strength 5/5 Skin: no rashes, warm and dry normal turgor Neurologic: PERRL, EOMI, accommodation nl, no face palsy, no dysarthria CN's II- XI intact bilaterally and moves all extremities Psychiatric: A+Ox3, Appears anxious. No tremors noted Principal Diagnosis Panic attack disorder Discharge Exam Constitutional: WD/WN, vitals as above, NAD, sitting up in bed, pleasant, conversing easily Respiratory: normal respiratory effort, lungs clear to auscultation, no wheeze, rales, rhonchi. Normal insp/exp effort, no accessory muscle use Cardiovascular: RRR, no murmur, no edema Vessels: no JVD or carotid bruit Chest: normal inspection of chest Abdomen: normal bowel sounds, soft, nontender, no hepatosplenomegaly Musculoskeletal: no cyanosis or clubbing, extremities motor strength 5/5 Skin: no rashes, warm and dry normal turgor Neurologic: PERRL, EOMI, accommodation nl, no face palsy, no dysarthria CN's II- XI intact bilaterally and moves all extremities Psychiatric: A+Ox3, Appears anxious. No tremors noted Discharge Data Allergies Allergy/AdvReac Type Severity Reaction Status Date / Time No Known Allergies Allergy Unverified 05/10/20 19:09 Consultations 07/03/25 10:39 ED Decision to Admit Stat 07/04/25 08:18 Consult Psychiatry Routine Hospital Course (1) Panic attacks: (2) Alcohol withdrawal syndrome without complication: (3) GUANAKO (generalized anxiety disorder): Plan 35yo male with pmhx of alcohol use disorder, tobacco use who presents for hypertension and panic attacks 2/2 severe anxiety and alcohol withdrawal. #Severe GUANAKO #Alcohol Use Disorder Patient presents with a history of multiple panic attacks; more frequent in the last 3 days;Reports alcohol use to mitigate the symptoms of panic attack -patient scored 16 on GUANAKO-7 diagnosing patient with severe anxiety -last drink 2 days prior to admission Patient was admitted to the medical floor; was started on alcohol withdrawal protocol. Psychiatry was consulted for comanagement. He was started on Lexapro 10 mg once a day. Psychiatry recommended continuing Lexapro as outpatient. Patient reported improvement in his symptoms and he was discharged home. No signs or symptoms of alcohol withdrawal were present at the time of the discharge. Please note the above document was generated using voice recognition software. It may contain grammatical, syntax or spelling errors. Any formal questions or concerns about the content, text or information contained within the body of this dictation should be directly addressed to the provider for clarification Total Time Total Time Spent Total Time Spent (In Minutes): 45 Total Time Includes: Examination of the Patient, Discharge Planning, Medication Reconciliation, Communication With Other Providers and Other Discharge Plan Discharge Items Patient Disposition: Home - Self-Care Reason For Visit: ALCOHOL WITHDRWAL Discharge Diagnosis: Panic disorder Condition on Discharge: Good Activity: Resume your previous activity Non-emergency contact: Primary Care Provider Call non-emergency contact if: you have any medication questions and your symptoms worsen Follow-up/Referrals: Giovanni Montiel M.D. [Outside Practitioners] - (Date & Time 07/11/2025 2:00 PM Provider: Giovanni Montiel MD [facility] ) Anny Tamayo, PANicoleC [Primary Care Provider] - Diet: Regular Addtl Attending Provider Instructions: You were admitted to the hospital due to panic attack disorder. You were evaluated by psychiatry; they recommend Lexapro 10 mg once a day. Usually the response of Lexapro takes about 4 weeks; please follow-up with your primary care doctor as scheduled. You have also been prescribed folic acid and thiamine supplement. Pending Studies at Discharge: No Stand-Alone Forms: My [facility], Smoking Cessation Medications and DC Order Prescriptions: New thiamine HCl (vitamin B1) 100 mg Tablet 100 mg PO QAM Qty: 30 0RF folic acid 1 mg Tablet 1 mg PO QAM Qty: 30 0RF escitalopram oxalate 10 mg Tablet 10 mg PO QAM Qty: 30 0RF Continued omeprazole 20 mg capsule,delayed release(DR/EC) 0 mg PO DAILY Patient Comments: 07/03- last filled 05/23 30 day supply #30 Discharge Orders: Discharge Order (Routine); Ordered 07/05/25 Ordered By: Shadi Adair Admission Data Admit Date/Time: 07/03/25 10:42 Attending Provider: Shadi Adair Admit Provider: Javier Rodriguez Primary Care Provider: Anny Tamayo Other Providers: Javier Rodriguez; Sophie Peña; Archie Phillips; Clementina Ricketts; Cindi Cosme; Aakash Magallanes; Cruz Alicia; Lisa Padilla; Louise Correa
== END 2025-07-05 10:41 | disposition home or self-care (01) | DRG 897 ==
LOC: ED 08:08 → EDINP 10:42 → SUATTDRO 10:42 → INTOOBSV 10:42 → 3N 12:22